=== PATIENT | female | born 1995 | race Hispanic/Latino ===

== ENCOUNTER 2019-08-30 07:46 | Emergency (ER) | payer BC ==
[~2019-08-30] VITALS: Ht 162.6 cm; Wt 72.7 kg
[~2019-08-30 07:46] MED LIST: CIPROFLOXACN500 MG PO; DENIES CURRENT MEDS; METHOCARBAM500 MG PO; METRONIDAZOL500 MG PO; MOBIC7.5 M1 PO; NORCO1 TA1 PO
[2019-08-30] MEDS ORDERED: PRENATA3 PO (08:07)
[2019-08-30 08:31] LABS: URINE BILIRUBIN - DIPSTICK NEGATIVE (NEGATIVE); URINE BLOOD DIPSTICK NEGATIVE (NEGATIVE); URINE COLOR YELLOW; URINE GLUCOSE - DIPSTICK NEGATIVE (NEGATIVE); URINE KETONE NEGATIVE (NEGATIVE); URINE LEUK ESTERASE NEGATIVE (NEGATIVE); URINE NITRITE - DIPSTICK NEGATIVE (Negative); URINE PH 5.5 (4.5-8.0); URINE PROTEIN - DIPSTICK NEGATIVE (NEG-TRACE); URINE SPECIFIC GRAVITY >=1.030; URINE UROBILINOGEN - DIPSTICK 0.2 E.U./dL (0.2)
[2019-08-30 08:58] LABS: HEMATOCRIT 39.9 % (37.0-47.0); HEMOGLOBIN 13.1 g/dl (12.0-16.0); IMMATURE GRANULOCYTES 0.3 % (0.0-5.0); MEAN CELL VOLUME 89.1 fL CALC (80.0-100.0); MEAN CORPUSCULAR HGB 29.2 pG CALC (26.0-32.0); MEAN CORPUSCULAR HGB CONC 32.8 g/L CALC (32.0-36.0); NEUT# 7.36 thou/uL (2.00-7.15); RED BLOOD COUNT 4.48 mill/uL (4.20-5.60); RED CELL DISTRI WIDTH 11.9 % (11.5-15.5)
[2019-08-30 09:03] LABS: ALBUMIN 4.6 g/dL (3.2-5.0); ALKALINE PHOSPHATASE 67 u/l (38-126); ANION GAP 14 (6-22 (CALC)); BUN 13 mg/dL (7-17); BUN/CREATININE RATIO 25 (12-20 (CALC)); CARBON DIOXIDE 24 mmol/l (22-30); CHLORIDE 106 mmol/l (95-108); CREATININE 0.5 mg/dL (0.5-1.0); GFR > 60 ML/MIN (>=60 (CALC)); GFR FOR AFR.AMER. > 60 ML/MIN (>=60 (CALC)); POTASSIUM 4.3 mmol/l (3.5-5.1); SGOT/AST 39 u/l (14-36); SODIUM 139 mmol/l (137-146); TOTAL PROTEIN 7.8 g/dL (6.3-8.2)
[2019-08-30 09:09] LABS: BILIRUBIN, TOTAL 0.7 mg/dL (0.0-1.4)
[2019-08-30 09:20] LABS: BETA-HCG, QUANT(RESULT NUMBER) 19 mIU/mL
[2019-08-30 10:32] VITALS: BP 130/57
== END 2019-08-30 10:38 | disposition home or self-care (01) | DRG 761 ==
LOC: ED 07:46
PROVIDERS: Emergency Medicine
DX: N93.9 Abnormal uterine and vaginal bleeding, unspecified (principal); R10.2 Pelvic and perineal pain

== ENCOUNTER 2020-04-26 02:26 | Observation (INO) | payer OTHER ==
[~2020-04-26] VITALS: Ht 160 cm; Wt 84.5 kg
[~2020-04-26 02:26] MED LIST changes: +PRENATA3 PO
--- NOTE | 2020-04-26 02:34 | NUR ---
PATIENT TO ROOM 10 FOR BEDSIDE TRIAGE.
--- NOTE | 2020-04-26 02:39 | NUR ---
PATIENT TO BATHROOM FOR URINE SAMPLE.
[2020-04-26 03:19] LABS: HEMATOCRIT 38.8 % (37.0-47.0); HEMOGLOBIN 13.1 g/dl (12.0-16.0); IMMATURE GRANULOCYTES 0.2 % (0.0-5.0); MEAN CELL VOLUME 87.2 fL CALC (80.0-100.0); MEAN CORPUSCULAR HGB 29.4 pG CALC (26.0-32.0); MEAN CORPUSCULAR HGB CONC 33.8 g/dL CAL (32.0-36.0); NEUT# 4.4 thou/uL (2.00-7.15); RED BLOOD COUNT 4.45 mill/uL (4.20-5.60); RED CELL DISTRI WIDTH 12.1 % (11.5-15.5)
[2020-04-26 03:21] LABS: URINE BILIRUBIN - DIPSTICK NEGATIVE (NEGATIVE); URINE COLOR YELLOW; URINE GLUCOSE - DIPSTICK NEGATIVE (NEGATIVE); URINE KETONE NEGATIVE (NEGATIVE); URINE NITRITE - DIPSTICK NEGATIVE (Negative); URINE PROTEIN - DIPSTICK NEGATIVE (NEG-TRACE); URINE SPECIFIC GRAVITY 1.025; URINE UROBILINOGEN - DIPSTICK 0.2 E.U./dL (0.2)
--- NOTE | 2020-04-26 03:21 | NUR ---
PATIENT MEDICATED ORDERED. WILL MONITOR FOR EFFECT. AWARE OF PENDING CAT SCAN ONCE LABS RESULTED.
[2020-04-26 03:33] LABS: URINE BLOOD DIPSTICK NEGATIVE (NEGATIVE); URINE LEUK ESTERASE SMALL (NEGATIVE)
[2020-04-26 03:34] LABS: URINE BACTERIA MODERATE hpf; URINE EPITHELIAL CELLS FEW EPI/hpf (0-FEW)
[2020-04-26 03:39] LABS: ALBUMIN 4.9 g/dL (3.2-5.0); ALKALINE PHOSPHATASE 74 u/l (38-126); AMYLASE 77 u/l (30-110); ANION GAP 14 (6-22 (CALC)); BILIRUBIN, TOTAL 0.3 mg/dL (0.0-1.4); BUN 11 mg/dL (7-17); BUN/CREATININE RATIO 18 (12-20 (CALC)); CARBON DIOXIDE 21 mmol/l (22-30); CHLORIDE 106 mmol/l (95-108); CREATININE 0.6 mg/dL (0.5-1.0); GFR > 60 ML/MIN (>=60 (CALC)); GFR FOR AFR.AMER. > 60 ML/MIN (>=60 (CALC)); LIPASE 456 u/l (23-300); POTASSIUM 3.8 mmol/l (3.5-5.1); SGOT/AST 43 u/l (14-36); SODIUM 137 mmol/l (137-146); TOTAL PROTEIN 7.5 g/dL (6.3-8.2)
--- NOTE | 2020-04-26 04:25 | NUR ---
PT BACK FROM RADIOLOGY IVF STARTED ORDERED AND WARM BLANKET APPLIED FOR COMFRT, PT STATEES PAIN MUCH IMPROVED, CALL [facility] WITHIN REACH
--- NOTE | 2020-04-26 05:17 | NUR ---
PT RESTING NO S/S OF DISTRESS OR DISCOMFORT, CALL LIZETH LOOMIS, IVF CONTINUE
--- NOTE | 2020-04-26 05:21 | NUR ---
SPOUSE AT BEDSIDE SPEAKING WITH BOTH REGARDING PLAN OF CARE.
--- NOTE | 2020-04-26 06:25 | NUR ---
PT RESTING AWARE OF PENDING ULTRASOUND, NO NEW COMPLAINTS, CALL [facility] WITHIN REACH
--- NOTE | 2020-04-26 06:58 | NUR ---
RECEIVED CARE OF PATIENT
--- NOTE | 2020-04-26 07:08 | NUR ---
PT AO X 3. SKIN PINK WARM AND DRY. COMPLAINS OF ABDOMINAL PAIN 06/05. MEDICATED FOR PAIN. RESTING ON STRETCHER. AWAITING ULTRASOUND
--- NOTE | 2020-04-26 08:27 | NUR ---
PT RETURNED FROM XRAY. RESTING COMFORTABLY ON STRETCHER TALKING ON PHONE
--- NOTE | 2020-04-26 09:25 | NUR ---
PT RESTING COMFORTABLY ON STRETCHER
--- NOTE | 2020-04-26 09:53 | NUR ---
PT REPORTS LAST SOLID FOOD 04/25 1800 AND CLEAR TEA 04/26 [id number].
--- NOTE | 2020-04-26 10:05 | NUR ---
PT TAKEN VIA WHEELCHAIR TO OR
[2020-04-26] MEDS ORDERED: PERCOCET 5/325M1 TAB PO (12:54)
[2020-04-26 13:50] VITALS: BP 122/71
== END 2020-04-26 14:05 | disposition home or self-care (01) | DRG 418 ==
LOC: ED 02:26 → ED-I 08:50 → ED 09:34 → ED-I 09:35 → MS2 09:47
PROVIDERS: Emergency Medicine; ADMIT Surgery; ATTEND Surgery
PROC: 0FT44ZZ Resection of Gallbladder, Percutaneous Endoscopic Approach (ICD-10-PCS; principal; 2020-04-26)
PROC: BF001ZZ Plain Radiography of Bile Ducts using Low Osmolar Contrast (ICD-10-PCS; 2020-04-26)
DX: K85.10 Biliary acute pancreatitis without necrosis or infection (principal); K80.10 Calculus of gallbladder with chronic cholecystitis without obstruction; Z11.59 Encounter for screening for other viral diseases
CPT/HCPCS: J0131; J1100; Q9967; S0164

== ENCOUNTER 2021-01-12 04:40 | Emergency (ER) | payer BC ==
[~2021-01-12] VITALS: Ht 160 cm; Wt 91.0 kg
[~2021-01-12 04:40] MED LIST changes: +PERCOCET 5/325M1 TAB PO
[2021-01-12 05:42] LABS: HEMATOCRIT 37.7 % (37.0-47.0); HEMOGLOBIN 12.7 g/dl (12.0-16.0); IMMATURE GRANULOCYTES 0.4 % (0.0-5.0); MEAN CELL VOLUME 86.1 fL CALC (80.0-100.0); MEAN CORPUSCULAR HGB CONC 33.7 g/dL CAL (32.0-36.0); NEUT# 3.97 thou/uL (2.00-7.15); RED BLOOD COUNT 4.38 mill/uL (4.20-5.60); RED CELL DISTRI WIDTH 11.8 % (11.5-15.5)
[2021-01-12 05:56] LABS: INTERNATIONAL NORMALIZED RATIO 0.9 RATIO (0.7-1.3); PROTHROMBIN TIME 9.3 SECONDS (9.0-12.5)
[2021-01-12 05:57] LABS: ALBUMIN 4.2 g/dL (3.2-5.0); ALKALINE PHOSPHATASE 58 u/l (38-126); ANION GAP 14 (6-22 (CALC)); BUN 7 mg/dL (7-17); BUN/CREATININE RATIO 12 (12-20 (CALC)); CARBON DIOXIDE 24 mmol/l (22-30); CHLORIDE 102 mmol/l (95-108); CREATININE 0.5 mg/dL (0.5-1.0); GFR > 60 ML/MIN (>=60 (CALC)); GFR FOR AFR.AMER. > 60 ML/MIN (>=60 (CALC)); POTASSIUM 3.5 mmol/l (3.5-5.1); SGOT/AST 59 u/l (14-36); SODIUM 136 mmol/l (137-146); TOTAL PROTEIN 7.5 g/dL (6.3-8.2)
[2021-01-12 06:09] LABS: BILIRUBIN, TOTAL 0.7 mg/dL (0.0-1.4)
[2021-01-12] MEDS ORDERED: ZPAK PO (07:33)
[2021-01-12] MEDS ORDERED: DECADRON4 MG PO (07:33)
[2021-01-12 08:18] VITALS: BP 130/95
== END 2021-01-12 08:20 | disposition home or self-care (01) | DRG 177 ==
LOC: ED 04:40
PROVIDERS: Emergency Medicine
DX: U07.1 COVID-19 (principal); J12.82 Pneumonia due to coronavirus disease 2019
CPT/HCPCS: M0239; Q9967

== ENCOUNTER 2023-11-26 02:01 | Emergency (ER) | payer SELFPAY ==
[~2023-11-26] VITALS: Ht 160 cm; Wt 99.7 kg
[~2023-11-26 02:01] MED LIST changes: +DECADRON4 MG PO; +ZPAK PO
[2023-11-26 02:26] LABS: BASO% 0.3 % (0-3); EOS% 2.1 % (0-8); HEMATOCRIT 41.3 % (37.0-47.0); HEMOGLOBIN 13.2 g/dl (12.0-16.0); IMMATURE GRANULOCYTES 0.1 % (0.0-5.0); LYMPH% 55.8 % (15-41); MEAN CELL VOLUME 89.4 fL CALC (80.0-100.0); MEAN CORPUSCULAR HGB 28.6 pG CALC (26.0-32.0); MONO% 5.9 % (2-13); NEUT# 5.04 thou/uL (2.00-7.15); NEUT% 35.8 % (42-76); RED BLOOD COUNT 4.62 mill/uL (4.20-5.60); RED CELL DISTRI WIDTH 11.8 % (11.5-15.5)
[2023-11-26 02:29] VITALS: BP 148/115
[2023-11-26 02:39] LABS: ALBUMIN 4.7 g/dL (3.2-5.0); ALKALINE PHOSPHATASE 84 u/l (38-126); ANION GAP 13 (6-22 (CALC)); BILIRUBIN, TOTAL 0.5 mg/dL (0.02-1.3); BUN 13 mg/dL (7-17); BUN/CREATININE RATIO 21 (12-20 (CALC)); CARBON DIOXIDE 21 mmol/l (22-30); CHLORIDE 109 mmol/l (95-108); CREATININE 0.6 mg/dL (0.5-1.0); GFR FOR AFR.AMER. > 60 ML/MIN (>=60 (CALC)); GFR OTHER RACES > 60 ML/MIN (>=60 (CALC)); LIPASE 108 u/l (23-300); POTASSIUM 3.2 mmol/l (3.5-5.1); SGOT/AST 47 u/l (14-36); SODIUM 140 mmol/l (137-146); TOTAL PROTEIN 7.4 g/dL (6.3-8.2)
[2023-11-26 04:35] LABS: URINE BILIRUBIN - DIPSTICK Negative (NEGATIVE); URINE BLOOD DIPSTICK Trace-lysed (NEGATIVE); URINE GLUCOSE - DIPSTICK 100 mg/dL (NEGATIVE); URINE KETONE Trace mg/dL (NEGATIVE); URINE LEUK ESTERASE Trace (NEGATIVE); URINE NITRITE - DIPSTICK Negative (Negative); URINE PH 6.5 (4.5-8.0); URINE PROTEIN - DIPSTICK Negative (NEG-TRACE); URINE SPECIFIC GRAVITY 1.025; URINE UROBILINOGEN - DIPSTICK 0.2 E.U./dL (0.2)
[2023-11-26 04:36] LABS: URINE COLOR Yellow
[2023-11-26 05:16] VITALS: BP 132/76
[2023-11-26 05:30] VITALS: BP 149/94
[2023-11-26 06:01] VITALS: BP 132/80
[2023-11-26 06:30] VITALS: BP 136/70
[2023-11-26 10:45] VITALS: BP 136/70
== END 2023-11-26 10:49 | DRG 761 ==
LOC: ED 02:01
PROVIDERS: Family Medicine
DX: N83.8 Other noninflammatory disorders of ovary, fallopian tube and broad ligament (principal)